=== PATIENT | male | born 1965 | race Caucasian/White ===

== ENCOUNTER 2023-11-12 10:33 | Inpatient (IN) | payer OTHER, SELFPAY ==
[2023-11-12] VITALS (10 sets, daily range): BP systolic 90–122; BP diastolic 71–84; PULSE 78–111; RESP 16–18; TEMP 36.9–38.4; O2SAT 87–95; BMI 30.8
--- NOTE | 2023-11-12 10:32 | PCM.HP.STD ---
HPI - General General Date of Admission: 11/12/23 Date of Service: 11/12/23 Chief Complaint: Right upper quadrant abdominal pain HPI Narrative THOMAS WEST, is a 58 M who presents with right upper quadrant abdominal pain. Patient symptoms started a day prior to coming in. Pain was described as dull ache radiating to the right flank into the back. Had associated nausea but no vomiting. Patient was seen at the facility [facility] in view of persistent pain. Imaging studies demonstrated multiple gallstones with intra and extrahepatic biliary dilatation. Patient was also found to have thickened gallbladder. Friend with GI was notified from [facility] who did accept patient. Plan is for patient to undergo ERCP. On further questioning patient did admit to previous intermittent right upper quadrant pain which resolved spontaneously. [facility] Medical History (Updated 11/12/23 @ 11:[address] Archie Eng MD) Cancer Former smoker Hypertension Home Medications telmisartan 40 mg tablet (Micardis) 40 mg PO DAILY cholesterol 11/12/23 [History Last Taken 11/11/23] Allergy/AdvReac Type Severity Reaction Status Date / Time No Known Allergies Allergy Verified 11/12/23 10:35 Social History Smoking Status: Former smoker ROS ROS Narrative GENERAL: denies fever, chills, night sweats, weight loss, anorexia HEENT: denies headache, sinus congestion, or drainage, dysphagia RESPIRATORY: denies cough, sputum production, shortness of breath, CARDIAC: denies chest pain, palpitations, orthopnea, PND GASTROINTESTINAL: Right upper quadrant abdominal pain, nausea GENITOURINARY: denies dysuria, urgency, frequency, heamaturia EXTREMITY: denies swelling MUSCULOSKELETAL: denies current joint pain or tenderness NEUROLOGIC: denies focal numbness, weakness, tingling HEMATOLOGIC: denies easy bruising and/or hemorrhage INTEGUMENT: denies rashes PSYCHIATRIC: denies suicidal or homicidal ideation Physical Exam Narrative GENERAL: cooperative HEENT: Atraumatic; normocephalic EYES; Anicteric, Normal Conjunctiva NECK; supple, normal thyroid, RESPIRATORY: Diminished to auscultation CARDIOVASCULAR: Regular S1 S2, GI: soft, normoactive bowel sounds, RUQ tenderness : No Renal angle tenderness; EXTREMITIES: No edema, no clubbing, MUSCULOSKELETAL: no muscle wasting NEURO: Awake; no lateralizing signs. SKIN: No Rash PSYCH; Flat affect Assessment & Plan Assessment/Plan (1) Cholelithiasis and acute cholecystitis with obstruction: PLAN: Plan Patient is a 58-year-old gentleman presenting with right upper quadrant abdominal pain 1. Acute cholelithiasis with obstruction ? CT obtained at an outside facility demonstrated multiple gallstones with intrahepatic biliary dilatation. The films have been sent to radiology for reread. Patient admitted to regular nursing floor managed with pain meds, antinausea medication IV fluids with consultation placed to Dr. Abreu with gastroenterology 2. Suspected acute cholecystitis ? Patient started on Zosyn consult placed to general surgery?Dr. Koch 3. Hypertension - Blood pressure controlled, home medications continued with dose adjustment as needed. 4. DVT prophylaxis ? Low risk with encouraging ambulation Time spent in the patient's overall evaluation,decision-making process, review of diagnostic data, adjustment of management, discussion with other providers, nursing nursing and ancillary staff involved in patient's care documentation, 55 Minutes Advance planning; did discuss with the patient and family regarding advanced directives as well as CODE STATUS. Did explain the various scenarios involved ( FULL CODE, DNR CCA, DNR CCA with no intubation, and DNR CC and what each meant) patient elected to full code with CPR and intubation if needed. Order was placed. Time spent on discussion 18 minutes. Charges/Coding Visit Charges Inpatient E&M: 54428 Subs Hosp L2 Procedures Hospitalists Procedures: 79482 Advncd Care Plan 30 Min
[2023-11-12] MEDS: Lactated Ringers 1,000 ML 150 ML IV ×2 (10:51→17:49)
[2023-11-12] MEDS: Pantoprazole Sodium 40 MG Tablet PO (10:55)
[2023-11-12] MEDS: Losartan Potassium 50 MG Tablet PO (10:55)
[2023-11-12] MEDS: HYDROmorphone 0.5 MG/0.5 ML SYRINGE IV ×2 (11:11→14:07)
[2023-11-12 11:25] LABS: Absolute Lymphocyte Count 0.73 X10^3/uL (0.83-4.51); Absolute Neutrophil Count 13.2 X10^3/uL (2.0-7.7); Basophil# 0.04 X10^3/uL; Basophil% 0.3 % (0-1); Eosinophil# 0.01 X10^3/uL; Eosinophils% 0.1 % (0-5); Hemoglobin 13.8 g/dL (13.0-16.5); Lymphocyte # 0.73 X10^3/ul (0.83-4.51); Lymphocyte % 4.6 % (19-41); Mean Corp Hgb Conc 33.7 g/dL (32-36); Mean Corpuscular Hgb 28.5 pg (27.0-32.0); Mean Corpuscular Volume 84.7 fL (80-94); Mean Platelet Vol. 9.2 fl (6.2-12.0); Monocyte# 1.74 X10^3/uL; Monocyte% 11.1 % (0-10); NRBC Flagged by Analyzer 0 % (0-5); Neutrophil # 13.15 X10^3/uL (2.7-7.7); Neutrophil % 83.5 % (47-70); POSITIVE DIFFERENTIAL YES; Platelet Count 289 K/mm3 (150-450); RBC Distribution Width CV 13.8 % (11.6-14.6); Red Blood Count 4.84 M/mm3 (4.6-6.2); White Blood Count 15.7 K/mm3 (4.4-11.0)
[2023-11-12 11:28] LABS: Differential Indicated SCAN CRITERIA MET
[2023-11-12 11:44] LABS: AST(SGOT) 148 U/L (15-37); Alanine Aminotransfer ALT/SGPT 323 U/L (16-61); Albumin, Serum 3.6 g/dL (3.2-5.0); Alkaline Phosphatase 203 U/L (45-117); Anion Gap 4 (5-15); BUN 14 mg/dL (7-18); BUN/Creat Ratio 14.4 RATIO (10-20); Bilirubin, Direct 5.41 mg/dL (0.00-0.30); Calcium,Total 9.2 mg/dL (8.5-10.1); Chloride 106 mmol/L (98-107); Creatinine, Serum 0.97 mg/dL (0.70-1.30); EST Glomerular Filtration Rate 85 mL/min (>60); Est Glom Filt Rate - Afr Amer 103 mL/min (>60); Estimated Creatinine Clearance 95.48 ml/min; Globulin 3.6 g/dL (2.2-4.2); Glucose 127 mg/dL (74-106); Magnesium 2.1 mg/dL (1.6-2.6); Phosphorus 2.5 mg/dL (2.5-4.9); Potassium 3.9 mmol/L (3.5-5.1); Protein, Total 7.2 g/dL (6.4-8.2); Sodium Level 135 mmol/L (136-145)
[2023-11-12 12:18] LABS: Reactive Lymphocyte 1+
--- NOTE | 2023-11-12 13:17 | EKG12_ITS ---
Test Reason : Blood Pressure : / mmHG Vent. Rate : 102 BPM Atrial Rate : 102 BPM P-R Int : 166 ms QRS Dur : 082 ms QT Int : 330 ms P-R-T Axes : 063 052 024 degrees QTc Int : 430 ms Sinus tachycardia Otherwise normal ECG No previous ECGs available Confirmed by CHRIS HUDSON ([id number]), newspaper or periodical editor KENDALL MARCIAL ([id number]) on 11/17/2023 9:30:46 AM Referred By: JOHN Confirmed By:CHRIS HUDSON
[2023-11-12] MEDS: Acetaminophen 500 MG Tablet 1000 MG PO (14:03)
[2023-11-12] MEDS: Piperacil/Tazobactam 3.375 GM in 0.9% Normal Saline (50mL MB+) 50 ML IV ×2 (14:24→21:29)
--- NOTE | 2023-11-12 15:10 | RAD_ITS ---
INDICATION: cough EXAMINATION/TECHNIQUE: X-RAY - XR Chest 1 View COMPARISON: None. FINDINGS: LINES/DEVICES: None. LUNGS: Linear atelectasis in the right midlung. Airspace consolidation posterior right lower lobe. No left lung consolidation. No florid edema. No pneumothorax. MEDIASTINUM AND CARDIOVASCULAR STRUCTURES: Cardiac silhouette not enlarged. BONES AND SOFT TISSUES: Unremarkable. RAD/Chest 1 View (Portable) IMPRESSION: Right basilar consolidation concerning for pneumonia. Radiographic follow-up recommended in 6 weeks after treatment to ensure resolution. Electronically Signed: Kit Sung MD at 19:55 EDT ,
[2023-11-12 16:39] LABS: Lactic Acid 0.9 mmol/L (0.4-1.9)
--- NOTE | 2023-11-12 18:34 | CON.PCM.SX_ITS ---
Assessment & Plan Assessment/Plan (1) Cholelithiasis and acute cholecystitis with obstruction: PLAN: Patient is a 58-year-old, reasonably healthy, male who presents with signs and symptoms consistent with choledocholithiasis and acute cholecystitis. He suggests that he may have had similar right upper quadrant discomfort?in a self-limited fashion?over the last few years. This may be a description of symptomatic cholelithiasis versus chronic cholecystitis, but at present he does have a positive Jamison sign suggestive of acute cholecystitis. Further, his labs were repeated at our facility and confirmed the outside hospital testing that he has a significant elevation of his liver function testing and bilirubin. I have thus taken the time to explain his diagnosis and used a hand drawing to outline the relative anatomy and physiology. I shared that this would consist of a treatment plan delivered in part by gastroenterology (ERCP) and followed by surgery (cholecystectomy). Some details of these procedures were also shared and all questions were answered from patient and his spouse. He is presently on empiric IV antibiotic therapy with IV Zosyn per hospitalist service. We have finalized treatment plan timing and patient will be allowed a clear liquid diet until midnight then n.p.o. past midnight in anticipation of ERCP followed by laparoscopic cholecystectomy with the same anesthesia. Reece Koch MD General Surgery Endocrine Surgery Pager: [facility] [address] [place] [address], [address] [place] [address] Office: [phone] HPI Consult Data Date of Consult: 11/12/23 HPI Narrative Reason for Consultation: Cholecystitis with choledocholithiasis HPI Narrative: THOMAS WEST, is a 58 M who presents to [facility] on direct transfer from [facility] after acceptance by Dr. Abreu/gastroenterology. Patient states that yesterday he started with right upper quadrant discomfort that intensified approximately midnight. He shares that this right upper quadrant pain was associated with fever and nausea. He also suggest that his urine may have been darker than normal. He does relate that this pain is not necessarily new to him and he had more self-limited experiences of this pain in the past couple of years. Patient's outside hospital workup was inclusive of CMP that showed elevation of his liver function testing and bilirubin and a cholestatic pattern. Further, CT imaging of the abdomen pelvis was performed and showed evidence of intra and extrahepatic biliary dilatation with choledocholithiasis. Patient is a former smoker who underwent cessation 27 years ago. He also has a history of hypertension. He reports a history of melanoma excision several years ago but was assured that the lesion was entirely excised. [facility] Medical History (Updated 11/12/23 @ 11:[address] Archie Eng MD) Cancer Former smoker Hypertension Home Medications telmisartan 40 mg tablet (Micardis) 40 mg PO DAILY cholesterol 11/12/23 [History Last Taken 11/11/23] Allergy/AdvReac Type Severity Reaction Status Date / Time No Known Allergies Allergy Verified 11/12/23 10:35 Social History Smoking Status: Former smoker Physical Exam Const alert and well nourished Constitutional Narrative: Jaundiced General Appearance: cooperative Eyes Eyes Narrative: Scleral icterus present Resp normal respiratory effort GI GI Narrative: Hirsute, no scars, soft, nondistended, tender to palpation in the right upper quadrant with positive Jamison sign Lab / Micro Data 11/12/23 11:15 11/12/23 11:15 Labs: Laboratory Results - last 24 hr 11/12/23 11:15: WBC 15.7 H, RBC 4.84, Hgb 13.8, Hct 41.0, MCV 84.7, MCH 28.5, MCHC 33.7, RDW Std Deviation 43.0, RDW Coeff of Abdiaziz 13.8, Plt Count 289, MPV 9.2, Immature Gran % (Auto) 0.400, Neut % (Auto) 83.5 H, Lymph % (Auto) 4.6 L, [place] % (Auto) 11.1 H, Eos % (Auto) 0.1, Baso % (Auto) 0.3, Absolute Neuts (auto) 13.2 H, Absolute Lymphs (auto) 0.73 L, Nucleated RBC % 0, Diff Path Review May foll, Reactive Lymphocytes 1+, Sodium 135 L, Potassium 3.9, Chloride 106, Carbon Dioxide 25.0, Anion Gap 4 L, BUN 14, Creatinine 0.97, Estim Creat Clear Calc 95.48, Est GFR (MDRD) Af Amer 103, Est GFR (MDRD) Non-Af 85, BUN/Creatinine Ratio 14.4, Glucose 127 H, Calcium 9.2, Phosphorus 2.5, Magnesium 2.1, Total Bilirubin 7.30 H, Direct Bilirubin 5.41 H, AST 148 H, ALT 323 H, Alkaline Phosphatase 203 H, Total Protein 7.2, Albumin 3.6, Globulin 3.6 11/12/23 15:59: Lactic Acid 0.9 Charges/Coding Visit Charges Inpatient E&M: 04095 Init Hosp L2
[2023-11-12] MEDS: oxyCODONE 5 MG Tablet PO (20:56)
[2023-11-13] VITALS (16 sets, daily range): BP systolic 100–126; BP diastolic 67–83; PULSE 70–99; RESP 14–20; TEMP 36.2–37.7; O2SAT 88–96; BMI 30.8
--- NOTE | 2023-11-13 | GALL_PTH ---
PATIENT: THOMAS WEST LOC: MS3 U#:[id number] AGE/SX: 58/M ROOM: IL317 RE11/12/[address]: Dr. Archie Eng MD : 1965 BED: 1 DIS: 11/14/2023 SPEC #: [id number] RECD: 11/13/23 15:08 STATUS: LEENA REQ #: [id number] BROOKS: 11/13/23 00:[address]: Rico Jones DEPT: SURGICAL PATHOLOGY RECD BY: Dewayne Orozco ENTERED: 11/14/23 09:26 SP TYPE: GALLBLADDE OTHR DR: MD Dr. Reece Yeh MD Tissues: Gallbladder, NOS Procedures: Surgery Specimen Level III Comments: @ Ordering doctor for SUIII edited from to @ by TWIN at 11/14/23 142 @ Submitting doctor edited from to @ by TWIN at 11/14/23 1422 HEADER OPERATION: Laparoscopic, Cholecystectomy with IOC PRE-OP DIAGNOSIS: Cholecystitis with choledocholithiasis TISSUE SUBMITTED: Gallbladder MICROSCOPIC DIAGNOSIS Gallbladder, cholecystectomy: Chronic cholecystitis, cholelithiasis and reactive epithelial changes. GIGI/ 11/17/23 MICROSCOPIC DESCRIPTION Slides are reviewed. GROSS DESCRIPTION Received is one container labeled with the patient's name and designated gallbladder. The specimen consists of a gallbladder measuring 7.0 cm in length and up to 3.5 cm in diameter. The external surface is pink-allen, smooth and glistening for the most part. Focally it is granular, hemorrhagic and contains cautery artifact. The gallbladder contains small amount of yellowish-red hemorrhagic mucoid bile and multiple multifaceted vdxhfxrnq-glvmy-fwbjt-black stones measuring in aggregate 5.0 x 5.0 x 2.0 cm and 0.5 to 3.0cm in greatest dimension. The mucosa is bile-stained and without any mass lesions. The gallbladder wall measures up to 0.5 cm in thickness. Sap Bpc Architect sections from the gallbladder and the cystic duct are submitted in one cassette. / GIGI: 11/14/2023 TC:3 CPT: 41333
[2023-11-13] MEDS: Lactated Ringers 1,000 ML 150 ML IV ×4 (00:13→22:10)
[2023-11-13] MEDS: Piperacil/Tazobactam 3.375 GM in 0.9% Normal Saline (50mL MB+) 50 ML IV ×3 (05:00→22:09)
[2023-11-13 06:35] LABS: Absolute Lymphocyte Count 0.91 X10^3/uL (0.83-4.51); Basophil# 0.05 X10^3/uL; Basophil% 0.6 % (0-1); Eosinophils% 2.4 % (0-5); Hematocrit 37.6 % (40-54); Hemoglobin 12.4 g/dL (13.0-16.5); Lymphocyte # 0.91 X10^3/ul (0.83-4.51); Lymphocyte % 10.8 % (19-41); Mean Corpuscular Hgb 27.9 pg (27.0-32.0); Mean Corpuscular Volume 84.5 fL (80-94); Mean Platelet Vol. 9.4 fl (6.2-12.0); Monocyte# 1.16 X10^3/uL; Monocyte% 13.8 % (0-10); NRBC Flagged by Analyzer 0 % (0-5); Neutrophil # 6.04 X10^3/uL (2.7-7.7); Neutrophil % 71.9 % (47-70); Platelet Count 217 K/mm3 (150-450); RBC Distribution Width CV 13.8 % (11.6-14.6); Red Blood Count 4.45 M/mm3 (4.6-6.2); White Blood Count 8.4 K/mm3 (4.4-11.0)
[2023-11-13 06:59] LABS: AST(SGOT) 55 U/L (15-37); Alanine Aminotransfer ALT/SGPT 182 U/L (16-61); Albumin, Serum 2.7 g/dL (3.2-5.0); Alkaline Phosphatase 148 U/L (45-117); Anion Gap 4 (5-15); BUN 10 mg/dL (7-18); Bilirubin, Direct 5.56 mg/dL (0.00-0.30); Calcium,Total 8.6 mg/dL (8.5-10.1); Chloride 107 mmol/L (98-107); Creatinine, Serum 0.77 mg/dL (0.70-1.30); EST Glomerular Filtration Rate 111 mL/min (>60); Est Glom Filt Rate - Afr Amer 135 mL/min (>60); Estimated Creatinine Clearance 120.28 ml/min; Globulin 3.1 g/dL (2.2-4.2); Glucose 96 mg/dL (74-106); Phosphorus 1.7 mg/dL (2.5-4.9); Potassium 3.7 mmol/L (3.5-5.1); Protein, Total 5.8 g/dL (6.4-8.2); Sodium Level 136 mmol/L (136-145)
--- NOTE | 2023-11-13 07:47 | PCM.PN.HOSP ---
Reason for Visit Reason for Visit: Diagnoses Calculus of gallbladder with acute cholecystitis with obstruction (11/12/23) Subjective Subjective . Patient admitted with cholelithiasis with obstruction and cholecystitis. Scheduled to undergo ERCP and cholecystectomy. Objective Data Objective Data Vital Signs: Vital Signs Temp Pulse Resp BP Pulse Ox O2 Del Method O2 Flow Rate 98.7 F 87 18 109/79 95 Nasal Cannula 2 11/13/23 05:33 11/13/23 05:33 11/13/23 05:33 11/13/23 05:33 11/13/23 05:33 11/13/23 05:38 11/13/23 05:33 Oxygen Flow Rate (L/min) 2 Oxygen Delivery Method Nasal Cannula Weight: 94.801 kg Body Mass Index (BMI) 30.8 Intake & Output: Intake and Output for Last 24 Hours 11/11/23 11/12/23 11/13/23 23:59 23:59 23:59 Intake Total 1550 / 1550 1815 / 1815 Balance 1550 / 1550 1815 / 1815 Lab / Micro Data 11/13/23 06:22 11/13/23 06:22 Labs: Laboratory Results - last 24 hr 11/12/23 11:15: WBC 15.7 H, RBC 4.84, Hgb 13.8, Hct 41.0, MCV 84.7, MCH 28.5, MCHC 33.7, RDW Std Deviation 43.0, RDW Coeff of Abdiaziz 13.8, Plt Count 289, MPV 9.2, Immature Gran % (Auto) 0.400, Neut % (Auto) 83.5 H, Lymph % (Auto) 4.6 L, [place] % (Auto) 11.1 H, Eos % (Auto) 0.1, Baso % (Auto) 0.3, Absolute Neuts (auto) 13.2 H, Absolute Lymphs (auto) 0.73 L, Nucleated RBC % 0, Diff Path Review May foll, Reactive Lymphocytes 1+, Sodium 135 L, Potassium 3.9, Chloride 106, Carbon Dioxide 25.0, Anion Gap 4 L, BUN 14, Creatinine 0.97, Estim Creat Clear Calc 95.48, Est GFR (MDRD) Af Amer 103, Est GFR (MDRD) Non-Af 85, BUN/Creatinine Ratio 14.4, Glucose 127 H, Calcium 9.2, Phosphorus 2.5, Magnesium 2.1, Total Bilirubin 7.30 H, Direct Bilirubin 5.41 H, AST 148 H, ALT 323 H, Alkaline Phosphatase 203 H, Total Protein 7.2, Albumin 3.6, Globulin 3.6 11/12/23 15:59: Lactic Acid 0.9 11/13/23 06:22: WBC 8.4, RBC 4.45 L, Hgb 12.4 L, Hct 37.6 L, MCV 84.5, MCH 27.9, MCHC 33.0, RDW Std Deviation 43.0, RDW Coeff of Abdiaziz 13.8, Plt Count 217, MPV 9.4, Immature Gran % (Auto) 0.500, Neut % (Auto) 71.9 H, Lymph % (Auto) 10.8 L, [place] % (Auto) 13.8 H, Eos % (Auto) 2.4, Baso % (Auto) 0.6, Absolute Neuts (auto) 6.0, Absolute Lymphs (auto) 0.91, Nucleated RBC % 0, Sodium 136, Potassium 3.7, Chloride 107, Carbon Dioxide 25.0, Anion Gap 4 L, BUN 10, Creatinine 0.77, Estim Creat Clear Calc 120.28, Est GFR (MDRD) Af Amer 135, Est GFR (MDRD) Non-Af 111, BUN/Creatinine Ratio 13.0, Glucose 96, Calcium 8.6, Phosphorus 1.7 L, Magnesium 2.0, Total Bilirubin 7.00 H, Direct Bilirubin 5.56 H, AST 55 H, ALT 182 H, Alkaline Phosphatase 148 H, Total Protein 5.8 L, Albumin 2.7 L, Globulin 3.1 Radiography Diagnostic Testing: Radiology Impression Chest X-Ray 11/12/23 15:10 IMPRESSION: Right basilar consolidation concerning for pneumonia. Radiographic follow-up recommended in 6 weeks after treatment to ensure resolution. Electronically Signed: Kit Sung MD at 19:55 EDT , Physical Exam Narrative GENERAL: cooperative HEENT: Atraumatic; normocephalic EYES; Anicteric, Normal Conjunctiva NECK; supple, normal thyroid, RESPIRATORY: Diminished to auscultation CARDIOVASCULAR: Regular S1 S2, GI: soft, normoactive bowel sounds, RUQ tenderness : No Renal angle tenderness; EXTREMITIES: No edema, no clubbing, MUSCULOSKELETAL: no muscle wasting NEURO: Awake; no lateralizing signs. SKIN: No Rash PSYCH; Flat affect Assessment & Plan Assessment/Plan (1) Cholelithiasis and acute cholecystitis with obstruction: PLAN: Plan Patient is a 58-year-old gentleman presenting with right upper quadrant abdominal pain 1. Acute cholelithiasis with obstruction ? CT obtained at an outside facility demonstrated multiple gallstones with intrahepatic biliary dilatation. The films have been sent to radiology for reread. Patient admitted to regular nursing floor managed with pain meds, antinausea medication IV fluids with consultation placed to Dr. Abreu with gastroenterology ? 11/13/2023 patient scheduled to undergo ERCP and cholecystectomy 2. Suspected acute cholecystitis ? Patient started on Zosyn consult placed to general surgery?Dr. Koch 3. Hypertension - Blood pressure controlled, home medications continued with dose adjustment as needed. 4. Suspected pneumonia involving the right lower lobe ? Patient remains on broad-spectrum antibiotic therapy 5. DVT prophylaxis ? Low risk with encouraging ambulation Time spent in the patient's overall evaluation,decision-making process, review of diagnostic data, adjustment of management, discussion with other providers, nursing nursing and ancillary staff involved in patient's care documentation, 50 Minutes Charges/Coding Visit Charges Inpatient E&M: 45759 [facility] L3
[2023-11-13 09:48] LABS: Pathologist Review Reviewed
[2023-11-13] MEDS: Lactated Ringers 1,000 ML 15 ML IV (10:40)
[2023-11-13] MEDS: Losartan Potassium 50 MG Tablet PO (12:05)
--- NOTE | 2023-11-13 12:31 | RAD_ITS ---
INDICATION: PAIN EXAMINATION/TECHNIQUE: ERCP limited spot intraoperative films are presented for evaluation. Total Fluoroscopic Time: 193 seconds AND number of Fluoroscopic Images: 14 OR Radiation dosage index: 51.69 mGy. COMPARISON: No relevant prior comparison study available FINDINGS: The common bile duct was cannulated. Prominent proximal common bile duct and intrahepatic biliary ducts. The last images demonstrate common bile duct stent. The examination was performed for documentation. No radiologist was present during the examination. RAD/ERCP Biliary/Pancreas IMPRESSION: ERCP as described above. Electronically Signed: Greg Saucedo MD at 14:06 EDT ,
--- NOTE | 2023-11-13 13:27 | OP.ERCP_ITS ---
Patient Name: Shakeel Tony Procedure Date: 11/13/2023 11:23 AM Date of : 1965 Age: 58 Procedure: ERCP Indications: Abdominal pain of suspected biliary origin, For therapy of bile duct stone(s), Jaundice, Elevated liver enzymes Providers: Slade Abreu DO Medicines: Monitored Anesthesia Care Patient Profile: This is a 58 year old male. Refer to note in patient chart for documentation of history and physical. Patient has symptoms of acute right upper quadrant abdominal pain and acute jaundice. This patient has no history of previous ERCP. This patient has no history of surgical alteration of the upper digestive tract anatomy. Complications: No immediate complications. Procedure: Pre-Anesthesia Assessment: - Prior to the procedure, a History and Physical was performed, and patient medications and allergies were reviewed. The patient is competent. The risks and benefits of the procedure and the sedation options and risks were discussed with the patient. All questions were answered and informed consent was obtained. Patient identification and proposed procedure were verified by the physician. Mental Status Examination: normal. Prophylactic Antibiotics: The patient does not require prophylactic antibiotics. Prior Anticoagulants: The patient has taken no anticoagulant or antiplatelet agents. ASA Grade Assessment: II - A patient with mild systemic disease. After reviewing the risks and benefits, the patient was deemed in satisfactory condition to undergo the procedure. The anesthesia plan was to use monitored anesthesia care (MAC). Immediately prior to administration of medications, the patient was re-assessed for adequacy to receive sedatives. The heart rate, respiratory rate, oxygen saturations, blood pressure, adequacy of pulmonary ventilation, and response to care were monitored throughout the procedure. The physical status of the patient was re-assessed after the procedure. After obtaining informed consent, the scope was passed under direct vision. Throughout the procedure, the patient's blood pressure, pulse, and oxygen saturations were monitored continuously. The Duodenoscope was introduced through the mouth, and advanced to the duodenum and used to inject contrast into the bile duct and ventral pancreatic duct. The ERCP was accomplished without difficulty. The patient tolerated the procedure well. Scope In: 12:35:45 PM Scope Out: 12:57:08 PM Total Procedure Duration Time 0 hours 21 minutes 23 seconds Findings: The scale adjuster film was normal. The esophagus was successfully intubated under direct vision. The scope was advanced to a normal major papilla in the descending duodenum without detailed examination of the pharynx, larynx and associated structures, and upper GI tract. The upper GI tract was grossly normal. The bile duct was deeply cannulated with the short-nosed traction sphincterotome. Contrast was injected. I personally interpreted the bile duct and pancreatic duct images. There was brisk flow of contrast through the ducts. Image quality was excellent. Contrast extended to the entire biliary tree. Opacification of the entire biliary tree except for the cystic duct and gallbladder was successful. The maximum diameter of the ducts was 11 mm. The lower third of the main bile duct contained multiple stones, the largest of which was 6 mm in diameter. The main bile duct, left main hepatic duct and left intrahepatic branches were diffusely dilated, with a stone causing an obstruction. The largest diameter was 10 mm. A straight Roadrunner wire was passed into the biliary tree. A 5 mm biliary sphincterotomy was made with a traction (standard) sphincterotome using ERBE electrocautery. The sphincterotomy oozed blood. The biliary tree was swept with a 12 mm balloon starting at the bifurcation. All stones were removed. Dilation of the common bile duct with a 10-11-12 mm balloon (to a maximum balloon size of 12 mm) dilator was successful. One 10 Fr by 5 cm temporary stent was placed 5 cm into the common bile duct. Bile flowed through the stent. The stent was in good position. Impression: - The entire main bile duct, left main hepatic duct and left intrahepatic branches were dilated, with a stone causing an obstruction. - Choledocholithiasis was found. Complete removal was accomplished by biliary sphincterotomy and balloon extraction. - A biliary sphincterotomy was performed. - The biliary tree was swept. - Common bile duct was successfully dilated. - One temporary stent was placed into the common bile duct. Procedure Code(s): --- Professional --- 64294, Endoscopic retrograde cholangiopancreatography (ERCP); with placement of endoscopic stent into biliary or pancreatic duct, including pre- and post-dilation and guide wire passage, when performed, including sphincterotomy, when performed, each stent 76911, Endoscopic retrograde cholangiopancreatography (ERCP); with removal of calculi/debris from biliary/pancreatic duct(s) 54336, 26, Combined endoscopic catheterization of the biliary and pancreatic ductal systems, radiological supervision and interpretation CPT copyright 2021 [employer]. All rights reserved. The codes documented in this report are preliminary and upon machine candle molder review may be revised to meet current compliance requirements. Slade Abreu DO 11/13/2023 1:27:15 PM This report has been signed electronically. Number of Addenda: 0 Note Initiated On: 11/13/2023 11:23 AM
--- NOTE | 2023-11-13 13:37 | RAD_ITS ---
INDICATION: PAIN EXAMINATION/TECHNIQUE: ERCP limited spot intraoperative films are presented for evaluation. Total Fluoroscopic Time: 34 seconds AND number of Fluoroscopic Images: Cine images OR Radiation dosage index: 19.19 mGy COMPARISON: No relevant prior comparison study available FINDINGS: The common bile duct was cannulated. Dilated common bile duct. No definite constant filling defect is seen There is free passage into the duodenum. The examination was performed documentation. No radiologist was present. RAD/Cholangiogram/ O R,Initial IMPRESSION: ERCP as described above. Electronically Signed: Greg Saucedo MD at 15:07 EDT ,
[2023-11-13] MEDS: Bupivacaine Mpf 0.5% 30 ML VIAL (14:25)
--- NOTE | 2023-11-13 14:36 | PCM.OPRPT ---
Report of Operation Date of Procedure: 11/13/23 Pre-Operative Diagnosis: Choledocholithiasis with cholecystitis Post-Operative Diagnosis: Same Surgery/Procedure Performed:: Laparoscopic cholecystectomy with intraoperative cholangiogram Description of Surgical Findings:: ? Evidence of acute on chronic cholecystitis with adiposity around the gallbladder infundibulum and cystic duct and edema plane between the gallbladder wall and the gallbladder fossa ? Mildly dilated cystic duct with cholangiogram showing normal filling of the common bile duct and retrograde filling of the common hepatic duct system without extravasation of Surgeon: Reece Koch Type of Anesthesia: General/Supplemental Anesthesiologist: Umang Palacios Specimen's removed: Gallbladder Estimated Blood Loss (mL): 15 Description of Procedure: After proper identification in the preoperative holding area the patient was brought to the operating room where he was positioned supine on the operating room table. Preoperatively SCDs were placed and antibiotics were administered. General anesthesia was then induced. Patient's abdomen was prepped and draped in usual sterile fashion. A formal timeout was conducted to confirm both patient and the procedure. Procedure was begun with a supraumbilical incision which was extended deeply down to the level of the fascia. The fascia was elevated and incised, as well as the peritoneum. A finger sweep was performed to ensure there were no underlying adhesions and a 12 mm balloon trocar was inserted. Pneumoperitoneum was established at 15 mmHg. Three additional trocars (all 5 mm) were placed in the epigastrium and in the right upper quadrant. Inspection of the peritoneum revealed no inadvertent injury to the viscera below. The gallbladder was visualized with evidence of acute on chronic inflammation. The gallbladder fundus was then grasped and elevated cephalad. Then, using careful dissection the peritoneum was opened and the structures of the hepatocystic triangle were delineated. Once the critical view of safety was obtained, the cystic duct was singly clipped and partially divided with a ductotomy. A 14-gauge angiocatheter was inserted into the epigastrium and via this catheter a cholangiocatheter was fed into the proximal segment of the cystic duct and clipped into place. Using an Parra [place] clamp, a cholangiocatheter was fed into the proximal segment of the cystic duct and clamped into place. Under fluoroscopy a cholangiogram was then obtained showing a standard length cystic duct flowing into a common bile duct with unobstructed antegrade flow of contrast into the duodenum via a common bile duct stent. There was also retrograde flow through the common hepatic duct into the right and left hepatic ducts. Satisfied with this result, the cholangiocatheter was withdrawn and the proximal cystic duct was sealed with Hem-o-flaca clips x 2 and the cystic duct was completely transected. The same process was used for the cystic artery. The gallbladder was then removed from the gallbladder fossa with the use of electrocautery. Selective electrocautery was used to obtain hemostasis in the gallbladder fossa. Morison's pouch was irrigated and the effluent was suctioned free of the peritoneum. Hemostasis was again confirmed. Pneumoperitoneum was evacuated and the gallbladder was placed in an Endo Catch bag and removed from the peritoneum.the fascia of the 12 mm port site was closed with #1Vicryl in a [id number] fashion. A total of 30 mL of anesthetic was injected at the port sites for postoperative pain control. The skin of each port site was then closed in subcuticular fashion using 4-0 Monocryl. Steri-Strips and bandages were applied as dressings. Patient tolerated the procedure well without any apparent complications. On emergence from their anesthetic the patient was taken to PACU for ongoing recovery. Complications No Admit VTE Documentation VTE Mechan Device Prophylaxis: SCD's Procedures Digestive 40xxx-49xxx: 86110 Laparo cholecystectomy/graph
--- NOTE | 2023-11-13 17:33 | NURSING ---
PT AND SIG OTHER WAS TOLD BY GUTIERREZ COREAS THAT HE HAD TO GET THIS NURSE TO ASSIST GETTING PT UP FOR THE FIRST TIME. WHEN LYUDMILA WENT BACK INTO ROOM TO START GETTING PT UP TO EDGE OF BED WHILE THIS NURSE FINISHED UP SOMETHING, THE SIG OTHER ALREADY HAD PT IN THE BATHROOM.
[2023-11-13] MEDS: HYDROmorphone 0.5 MG/0.5 ML SYRINGE IV (18:29)
[2023-11-13] MEDS: 0.9% Saline Lock 10 ML Syringe IV (18:30)
[2023-11-13] MEDS: Pantoprazole Sodium 40 MG Tablet PO (18:30)
[2023-11-13] MEDS: oxyCODONE 5 MG Tablet PO (21:58)
[2023-11-14 00:27] VITALS: PULSE 76; O2SAT 91
[2023-11-14 01:28] VITALS: BP 103/75; PULSE 76; RESP 20; TEMP 36.7; O2SAT 92
[2023-11-14 02:06] VITALS: O2SAT 83
[2023-11-14 02:08] VITALS: O2SAT 97
[2023-11-14] MEDS: Lactated Ringers 1,000 ML 150 ML IV (05:10)
[2023-11-14 05:53] VITALS: BP 120/77; PULSE 69; RESP 20; TEMP 36.9; O2SAT 95
[2023-11-14] MEDS: oxyCODONE 5 MG Tablet PO ×2 (05:58→11:35)
[2023-11-14] MEDS: Piperacil/Tazobactam 3.375 GM in 0.9% Normal Saline (50mL MB+) 50 ML IV (06:01)
--- NOTE | 2023-11-14 06:37 | PCM.PN.SRG ---
Subjective Subjective Patient seen and examined during AM rounds. He was found resting in bed. He denied any difficulty with advancement to clear liquid following surgery. He has minimal discomfort of his abdomen. Objective Data Objective Data Vital Signs: Vital Signs Temp Pulse Resp BP Pulse Ox O2 Del Method O2 Flow Rate 98.4 F 69 20 H 120/77 95 Room Air 2 11/14/23 05:53 11/14/23 05:53 11/14/23 05:53 11/14/23 05:53 11/14/23 05:53 11/14/23 05:53 11/14/23 02:08 Oxygen Flow Rate (L/min) 2 Oxygen Delivery Method Room Air Weight: 209 lb Body Mass Index (BMI) 30.8 Intake & Output: Intake and Output for Last 24 Hours 11/12/23 11/13/23 11/14/23 23:59 23:59 23:59 Intake Total 1550 / 1550 3045.42 / 3045.42 1647.08 / 1647.08 Output Total 0 / 0 Balance 1550 / 1550 3045.42 / 3045.42 1647.08 / 1647.08 Lab / Micro Data 11/14/23 06:50 11/14/23 06:50 Labs: Laboratory Results - last 24 hr 11/12/23 11:15: Diff Path Review Reviewed 11/13/23 06:22: Sodium 136, Potassium 3.7, Chloride 107, Carbon Dioxide 25.0, Anion Gap 4 L, BUN 10, Creatinine 0.77, Estim Creat Clear Calc 120.28, Est GFR (MDRD) Af Amer 135, Est GFR (MDRD) Non-Af 111, BUN/Creatinine Ratio 13.0, Glucose 96, Calcium 8.6, Phosphorus 1.7 L, Magnesium 2.0, Total Bilirubin 7.00 H, Direct Bilirubin 5.56 H, AST 55 H, ALT 182 H, Alkaline Phosphatase 148 H, Total Protein 5.8 L, Albumin 2.7 L, Globulin 3.1 Radiography Diagnostic Testing: Radiology Impression Endo Retro Cholangiopancreatogram 11/13/23 12:31 IMPRESSION: ERCP as described above. Electronically Signed: Greg Saucedo MD at 14:06 EDT , Cholangiogram 11/13/23 13:37 IMPRESSION: ERCP as described above. Electronically Signed: Greg Saucedo MD at 15:07 EDT , Physical Exam Const oriented x3 and no apparent distress Resp normal respiratory effort GI GI Narrative: Operative dressings remain intact with minimal strikethrough drainage to the supraumbilical incision. Remainder of the incisions are dressed and are CDI. There is some superficial tenderness with palpation about the port sites but otherwise patient denies complaint. Assessment & Plan Assessment/Plan (1) Cholelithiasis and acute cholecystitis with obstruction: PLAN: Patient is a 58-year-old, reasonably healthy, male who presents with signs and symptoms consistent with choledocholithiasis and acute cholecystitis. He is now postoperative day 1 from laparoscopic cholecystectomy with intraoperative cholangiogram. Procedure was completed in uncomplicated fashion and the cholangiogram showed free flow of contrast through the stent. This morning patient is comfortable and his abdominal exam is appropriate. Further, his labs are reviewed and are downtrending appropriately. Thus from a surgical standpoint patient's diet can be advanced and he can be considered for discharge to home with outpatient follow-up in another 10 to 14 days. Reece Koch MD General Surgery Endocrine Surgery Pager: [facility] [address] [place] [address], [address] [place] [address] Office: [phone] Charges/Coding Visit Charges Inpatient E&M: 09110 Subs Hosp L2
--- NOTE | 2023-11-14 07:32 | PCM.PN.HOSP ---
Reason for Visit Reason for Visit: Diagnoses Calculus of gallbladder with acute cholecystitis with obstruction (11/12/23) Subjective Subjective Patient underwent laparoscopic cholecystectomy with intraoperative cholangiogram on 11/13/2023 Objective Data Objective Data Vital Signs: Vital Signs Temp Pulse Resp BP Pulse Ox O2 Del Method O2 Flow Rate 98.4 F 69 20 H 120/77 95 Room Air 2 11/14/23 05:53 11/14/23 05:53 11/14/23 05:53 11/14/23 05:53 11/14/23 05:53 11/14/23 05:53 11/14/23 02:08 Oxygen Flow Rate (L/min) 2 Oxygen Delivery Method Room Air Weight: 94.801 kg Body Mass Index (BMI) 30.8 Intake & Output: Intake and Output for Last 24 Hours 11/12/23 11/13/23 11/14/23 23:59 23:59 23:59 Intake Total 1550 / 1550 3045.42 / 3045.42 1647.08 / 1647.08 Output Total 0 / 0 Balance 1550 / 1550 3045.42 / 3045.42 1647.08 / 1647.08 Lab / Micro Data 11/14/23 06:50 11/13/23 06:22 Labs: Laboratory Results - last 24 hr 11/12/23 11:15: Diff Path Review Reviewed Radiography Diagnostic Testing: Radiology Impression Endo Retro Cholangiopancreatogram 11/13/23 12:31 IMPRESSION: ERCP as described above. Electronically Signed: Greg Saucedo MD at 14:06 EDT , Cholangiogram 11/13/23 13:37 IMPRESSION: ERCP as described above. Electronically Signed: Greg Saucedo MD at 15:07 EDT , Physical Exam Narrative GENERAL: cooperative HEENT: Atraumatic; normocephalic EYES; Anicteric, Normal Conjunctiva NECK; supple, normal thyroid, RESPIRATORY: Diminished to auscultation CARDIOVASCULAR: Regular S1 S2, GI: soft, normoactive bowel sounds, RUQ tenderness : No Renal angle tenderness; EXTREMITIES: No edema, no clubbing, MUSCULOSKELETAL: no muscle wasting NEURO: Awake; no lateralizing signs. SKIN: No Rash PSYCH; Flat affect Assessment & Plan Assessment/Plan (1) Cholelithiasis and acute cholecystitis with obstruction: PLAN: Plan Patient is a 58-year-old gentleman presenting with right upper quadrant abdominal pain 1. Acute cholelithiasis with obstruction ? CT obtained at an outside facility demonstrated multiple gallstones with intrahepatic biliary dilatation. The films have been sent to radiology for reread. Patient admitted to regular nursing floor managed with pain meds, antinausea medication IV fluids with consultation placed to Dr. Abreu with gastroenterology ? 11/13/2023 patient scheduled to undergo ERCP and cholecystectomy ? 11/14/2023;Patient underwent laparoscopic cholecystectomy with intraoperative cholangiogram on 11/13/2023 2. Suspected acute cholecystitis ? Patient started on Zosyn consult placed to general surgery?Dr. Koch 3. Hypertension - Blood pressure controlled, home medications continued with dose adjustment as needed. 4. Suspected pneumonia involving the right lower lobe ? Patient remains on broad-spectrum antibiotic therapy 5. DVT prophylaxis ? Low risk with encouraging ambulation Time spent in the patient's overall evaluation,decision-making process, review of diagnostic data, adjustment of management, discussion with other providers, nursing nursing and ancillary staff involved in patient's care documentation, 35 Minutes Charges/Coding Visit Charges Inpatient E&M: 24859 Subs Hosp L2
[2023-11-14 07:50] LABS: Absolute Neutrophil Count 5.6 X10^3/uL (2.0-7.7); Basophil# 0.03 X10^3/uL; Basophil% 0.4 % (0-1); Eosinophils% 2.5 % (0-5); Hematocrit 37.7 % (40-54); Hemoglobin 12.7 g/dL (13.0-16.5); Lymphocyte % 13.7 % (19-41); Mean Corp Hgb Conc 33.7 g/dL (32-36); Mean Corpuscular Hgb 28.7 pg (27.0-32.0); Mean Corpuscular Volume 85.3 fL (80-94); Mean Platelet Vol. 9.7 fl (6.2-12.0); Monocyte# 1.02 X10^3/uL; Monocyte% 12.7 % (0-10); NRBC Flagged by Analyzer 0 % (0-5); Neutrophil # 5.64 X10^3/uL (2.7-7.7); Neutrophil % 70.5 % (47-70); Platelet Count 235 K/mm3 (150-450); RBC Distribution Width CV 13.9 % (11.6-14.6); RBC Distribution Width SD 43.8 fl (35.1-43.9); Red Blood Count 4.42 M/mm3 (4.6-6.2)
[2023-11-14 08:00] VITALS: BP 106/71; PULSE 66; RESP 14; TEMP 36.6; O2SAT 94
[2023-11-14 08:04] LABS: AST(SGOT) 54 U/L (15-37); Alanine Aminotransfer ALT/SGPT 154 U/L (16-61); Albumin, Serum 2.7 g/dL (3.2-5.0); Alkaline Phosphatase 146 U/L (45-117); Anion Gap 7 (5-15); BUN 8 mg/dL (7-18); Bilirubin, Direct 3.28 mg/dL (0.00-0.30); Calcium,Total 8.2 mg/dL (8.5-10.1); Chloride 105 mmol/L (98-107); EST Glomerular Filtration Rate 105 mL/min (>60); Est Glom Filt Rate - Afr Amer 127 mL/min (>60); Estimated Creatinine Clearance 115.77 ml/min; Globulin 3.5 g/dL (2.2-4.2); Glucose 141 mg/dL (74-106); Potassium 3.5 mmol/L (3.5-5.1); Protein, Total 6.2 g/dL (6.4-8.2); Sodium Level 138 mmol/L (136-145)
[2023-11-14] MEDS: Pantoprazole Sodium 40 MG Tablet PO (08:20)
[2023-11-14] MEDS: Losartan Potassium 50 MG Tablet PO (08:20)
--- NOTE | 2023-11-14 10:20 | PCM.DC.SUM ---
Providers Date of Admission: 11/12/23 Date of Discharge: 11/14/23 Consultations 11/12/23 10:38 Consult: Gastroenterology Routine Consulting Provider: Chavo Moore Reason for Consult: Cholelithiasis EMERGENT Consult: No Notified: Yes Date Notified: 11/12/23 Time Notified: 10:38 Method of Notification: ED Physician Initiated 11/12/23 11:34 Consult: General Surgery Routine Consulting Provider: Reece Koch Reason for Consult: Suspected cholecystitis EMERGENT Consult: No Notified: Yes Date Notified: 11/12/23 Time Notified: 11:34 Method of Notification: Verbal Reason For Visit: ERCP Diagnosis Discharge Diagnosis (1) Cholelithiasis and acute cholecystitis with obstruction: Status: Acute Code(s): K80.01 - Calculus of gallbladder with acute cholecystitis with obstruction Plan Patient is a 58-year-old gentleman presenting with right upper quadrant abdominal pain 1. Acute cholelithiasis with obstruction ? CT obtained at an outside facility demonstrated multiple gallstones with intrahepatic biliary dilatation. The films have been sent to radiology for reread. Patient admitted to regular nursing floor managed with pain meds, antinausea medication IV fluids with consultation placed to Dr. Abreu with gastroenterology ? 11/13/2023 patient scheduled to undergo ERCP and cholecystectomy ? 11/14/2023;Patient underwent laparoscopic cholecystectomy with intraoperative cholangiogram on 11/13/2023 2. Suspected acute cholecystitis ? Patient started on Zosyn consult placed to general surgery?Dr. Koch 3. Hypertension - Blood pressure controlled, home medications continued with dose adjustment as needed. 4. Suspected pneumonia involving the right lower lobe ? Patient remains on broad-spectrum antibiotic therapy 5. DVT prophylaxis ? Low risk with encouraging ambulation Time spent in the patient's overall evaluation,decision-making process, review of diagnostic data, adjustment of management, discussion with other providers, nursing nursing and ancillary staff involved in patient's care documentation, 35 Minutes Medications at Discharge Home Medications telmisartan 40 mg tablet (Micardis) 40 mg PO DAILY cholesterol 11/12/23 amoxicillin 875 mg-potassium clavulanate 125 mg tablet 1 tab PO BID #14 tabs 11/14/23 oxycodone 5 mg tablet 5 mg PO Q4H PRN PRN Pain Score 4-10 5 days #14 tabs 11/14/23 pantoprazole 40 mg tablet,delayed release 40 mg PO DAILY #30 tabs 11/14/23 Physical Exam Narrative GENERAL: cooperative HEENT: Atraumatic; normocephalic EYES; Anicteric, Normal Conjunctiva NECK; supple, normal thyroid, RESPIRATORY: Diminished to auscultation CARDIOVASCULAR: Regular S1 S2, GI: soft, normoactive bowel sounds, RUQ tenderness : No Renal angle tenderness; EXTREMITIES: No edema, no clubbing, MUSCULOSKELETAL: no muscle wasting NEURO: Awake; no lateralizing signs. SKIN: No Rash PSYCH; Flat affect Weight / BMI Weight Weight: 94.801 kg Body Mass Index (BMI) 30.8 ABG / Lab / Microbiology Data 11/14/23 06:50 11/14/23 06:50 Laboratory: Laboratory Results - last 24 hr 11/14/23 06:50: WBC 8.0, RBC 4.42 L, Hgb 12.7 L, Hct 37.7 L, MCV 85.3, MCH 28.7, MCHC 33.7, RDW Std Deviation 43.8, RDW Coeff of Abdiaziz 13.9, Plt Count 235, MPV 9.7, Immature Gran % (Auto) 0.200, Neut % (Auto) 70.5 H, Lymph % (Auto) 13.7 L, [place] % (Auto) 12.7 H, Eos % (Auto) 2.5, Baso % (Auto) 0.4, Absolute Neuts (auto) 5.6, Absolute Lymphs (auto) 1.10, Nucleated RBC % 0, Sodium 138, Potassium 3.5, Chloride 105, Carbon Dioxide 26.0, Anion Gap 7, BUN 8, Creatinine 0.80, Estim Creat Clear Calc 115.77, Est GFR (MDRD) Af Amer 127, Est GFR (MDRD) Non-Af 105, BUN/Creatinine Ratio 10.0, Glucose 141 H, Calcium 8.2 L, Total Bilirubin 4.30 H, Direct Bilirubin 3.28 H, AST 54 H, ALT 154 H, Alkaline Phosphatase 146 H, Total Protein 6.2 L, Albumin 2.7 L, Globulin 3.5 Radiography Diagnostic Testing: Radiology Impression Endo Retro Cholangiopancreatogram 11/13/23 12:31 IMPRESSION: ERCP as described above. Electronically Signed: Greg Saucedo MD at 14:06 EDT , Cholangiogram 11/13/23 13:37 IMPRESSION: ERCP as described above. Electronically Signed: Greg Saucedo MD at 15:07 EDT , D/C Instructions Discharge Diet: No restrictions Discharge Activity: Return to Normal Activity Call your doctor if you observe: Fever of 101 or Higher, Shortness of breath, Fainting spells and Chest pain Meaningful Use Info Meaningful Use Meaningful Use Diagnoses (Choose all that apply): None applicable Ischemic Stroke Statin Dosing Therapy Reference: STATIN DOSE THERAPY REFERENCE: * Patients > 75 years receive moderate or high dose statin therapy. * Patients 75 years or YOUNGER should receive HIGH intensity statin dose unless contraindicated. You will be required to document reason for non-treatment if statin daily dose does not meet guidelines. HIGH DOSE STATIN THERAPY DAILY Atorvastatin > than or = to 40 mg Rosuvastatin > than or = to 20 mg Amlodipine + Atorvastatin > than or = to 2.5/40 mg Ezetimibe + Simvastatin 10/80 mg Simvastatin 80mg Discharge Plan Admission Admit Date/Time: 11/12/23 10:33 Attending Provider: Archie Eng Consulting Providers: Reece Koch Discharge Orders/Prescriptions Prescriptions: New oxycodone 5 mg Tablet 5 mg PO Q4H PRN PRN (Reason: Pain Score 4-10) 5 Days Qty: 14 0RF pantoprazole 40 mg Tablet,Delayed Release (Dr/Ec) 40 mg PO DAILY Qty: 30 0RF amoxicillin-pot clavulanate 875-125 mg tablet 1 tab PO BID Qty: 14 0RF Continued telmisartan [Micardis] 40 mg tablet 40 mg PO DAILY Referrals / Follow Up: Reece Koch MD [Med Staff - Active Staff] - Within 2 Weeks Disposition Disposition (needs filled in before D/C Order can be placed): Home, Self Care Charges/Coding Visit Charges Inpatient E&M: 69318 Disch Hosp >30min
--- NOTE | 2023-11-14 11:20 | CASEMGMT ---
RN?CM?FOOD ANALYST?CM?to room to meet with patient for initial transition planning/care coordination?assessment.?RN?CM?introduced self and role at [facility].? Pt voices understanding and consents to?assessment?at this time.? Pt sitting up inc chair in room in no distress at this time.? GF, Leydi, @ bedside and pt agreeable to her being present during assessment. Pt is A/O at this time and answers all questions appropriately.?? Care providers, pharmacy, and demographics verified/updated at this time. PCP: Dr Manzanares Specialists: none Preferred Pharmacy: [facility] Retail @ [place] Insurance: Medical [place] Prescription Benefit:?Pt not sure Living Will/HPOA:?Pt does not currently have LW/HCPOA and declines info at this time.? Pt made aware that he can contact as an out-pt and make appt in the future if he decides he would like to talk with someone about this or would like to utilize [facility] social work for advanced directive completion. LNOK: 10 siblings. No children and parents are . Living Arrangements: Lives alone in 2-story home. Independent w/ADL's and IADL's. Transportation:?Pt uses bicycle to most places or hires drivers. DME: ? Denies using any DME HHC/SNF: No hx of either. No needs identified. Pt wishes to return home and states has no concerns with going home. PLAN:??Home Choco GAINESN?RN?CM
--- NOTE | 2023-11-14 12:14 | PHA.DC.MC.R ---
Pharmacy [facility] has performed discharge medication reconciliation and counseling for this patient. 1. AMOXICILLIN/CLAVULANATE 875MG PO BID X 7 DAYS 2. OXYCODONE 5MG PO Q4H PRN PAIN 3. PANTOPRAZOLE 40MG PO DAILY The patient's discharge medication list was reviewed for discrepancies and discrepancies were resolved. The patient was counseled on the following discharge medications and changes in medications for homegoing were reviewed. The Reason for Use, instructions for use, and potential side effects were reviewed for all new medications. The patient's questions regarding all of their medications were answered. The patient was able to verbally demonstrate an understanding of their discharge medications. Medications at Discharge Home Medications telmisartan 40 mg tablet (Micardis) 40 mg PO DAILY cholesterol 11/12/23 amoxicillin 875 mg-potassium clavulanate 125 mg tablet 1 tab PO BID #14 tabs 11/14/23 oxycodone 5 mg tablet 5 mg PO Q4H PRN PRN Pain Score 4-10 5 days #14 tabs 11/14/23 pantoprazole 40 mg tablet,delayed release 40 mg PO DAILY #30 tabs 11/14/23
== END 2023-11-14 14:41 | disposition home or self-care (01) | DRG 417 ==
PROVIDERS: Internal Medicine Gastroenterology; Surgery; Admitting Provider Internal Medicine; PCP Family Medicine; Visit Provider Internal Medicine
PROC: 0FC98ZZ Extirpation of Matter from Common Bile Duct, Via Natural or Artificial Opening Endoscopic (ICD-10-PCS; CPT 43260; principal; 2023-11-13 11:10)
PROC: 0FT44ZZ Resection of Gallbladder, Percutaneous Endoscopic Approach (ICD-10-PCS; CPT 47610; principal; 2023-11-13 11:10)
DX: K80.67 Calculus of gallbladder and bile duct with acute and chronic cholecystitis with obstruction (principal); J18.9 Pneumonia, unspecified organism; I10 Essential (primary) hypertension; Z79.899 Other long term (current) drug therapy; Z87.891 Personal history of nicotine dependence
CPT/HCPCS: 36415; 71045; 74300; 74330; 76000; 80048; 80076; 83605; 83735; 84100; 85025; 87040; 88304; 93005; 94668; J7120; A4216; J2405

== ENCOUNTER → 2023-11-27 | Outpatient (CLI) | payer OTHER, SELFPAY ==
[2023-11-27 11:07] LABS: AST(SGOT) 23 U/L (15-37); Alanine Aminotransfer ALT/SGPT 56 U/L (16-61); Albumin, Serum 3.9 g/dL (3.2-5.0); Alkaline Phosphatase 137 U/L (45-117); Anion Gap 4 (5-15); BUN 12 mg/dL (7-18); BUN/Creat Ratio 13.8 RATIO (10-20); Calcium,Total 9.6 mg/dL (8.5-10.1); Chloride 106 mmol/L (98-107); Creatinine, Serum 0.87 mg/dL (0.70-1.30); EST Glomerular Filtration Rate 96 mL/min (>60); Est Glom Filt Rate - Afr Amer 116 mL/min (>60); Glucose 104 mg/dL (74-106); Potassium 3.9 mmol/L (3.5-5.1); Protein, Total 7.9 g/dL (6.4-8.2); Sodium Level 140 mmol/L (136-145)
== END | disposition home or self-care (01) ==
LOC: PAVLAB 10:38
PROVIDERS: PCP Family Medicine; Referring Provider Physician Assistant; Visit Provider Physician Assistant
DX: Z90.49 Acquired absence of other specified parts of digestive tract (principal)
CPT/HCPCS: 36415; 80053

== ENCOUNTER 2024-02-02 09:53 | Day surgery (SDC) | payer OTHER, SELFPAY ==
[2024-02-02] VITALS (7 sets, daily range): BP systolic 100–121; BP diastolic 70–76; PULSE 52–81; RESP 16–18; TEMP 36–36.8; O2SAT 95–97; BMI 30.7
--- NOTE | 2024-02-02 10:03 | EKG12_ITS ---
Test Reason : pre op Blood Pressure : / mmHG Vent. Rate : 053 BPM Atrial Rate : 053 BPM P-R Int : 192 ms QRS Dur : 084 ms QT Int : 432 ms P-R-T Axes : 034 043 030 degrees QTc Int : 405 ms Sinus bradycardia Otherwise normal ECG When compared with ECG of 12-NOV-2023 13:36, Vent. rate has decreased BY 49 BPM Confirmed by Reece Patiño ([id number]), purchase request editor KENDALL MARCIAL ([id number]) on 02/05/2024 2:27:31 PM Referred By: Prince Manzanares Confirmed By:Reece Patiño
--- NOTE | 2024-02-02 10:15 | RAD_ITS ---
ERCP INDICATION: Abdominal pain. Fluoroscopy time: 0:27 Images obtained: 8 TECHNIQUE: 0:27 minutes of fluoroscopy of the abdomen was utilized during an ERCP and 8 images submitted for interpretation. Next FINDINGS: The first image demonstrates presence of a biliary stent which appears to been removed. Examination, bile duct demonstrates some mild narrowing of the distal common bile duct possibly consistent with a stricture. RAD/ERCP Biliary/Pancreas IMPRESSION: Suspect mild stricture of the distal common bile duct. Electronically Signed: Alfredo Borrego MD at 10:19 EDT ,
--- NOTE | 2024-02-02 10:27 | HP.PCM_ITS ---
HPI - General General Date of Admission: 03/03/24 Date of Service: 02/02/24 Chief Complaint: Choledocholithiasis status post ERCP with stent placement and now here for stent removal HPI Ramana WEST, is a 58 y/o M who presents s/p laparoscopic cholecystectomy with intraoperative cholangiography on 11/13/[address] Koch and ERCP with stent placement at the same setting. Patient tolerated the procedure well. Patient denies any nausea, vomiting, fever since the procedure. He notes bowel habits have returned to normal. He denies concerns with urination. He notes his appetite has returned to normal. He comes in today for stent removal versus replacement. [facility] Medical History (Updated 01/27/24 @ 11:58 by Marce Junior) Wears glasses Wears partial dentures Broken leg Cancer Former smoker Hypertension Home Medications ?Medication ?Instructions ?Recorded ?Last Taken ?Type telmisartan 40 mg tablet (Micardis) 40 mg PO DAILY BLOOD PRESSURE 11/12/23 02/02/24 07:00 History Allergy/AdvReac Type Severity Reaction Status Date / Time No Known Allergies Allergy Verified 02/02/24 10:18 Surgical History (Updated 01/27/24 @ 11:58 by Marce Junior) Status post cholecystectomy Social History Smoking Status: Former smoker
--- NOTE | 2024-02-02 10:29 | PRE.ANES_ITS ---
ASA Classification* ASA Classification ASA Classification: 2 Assessment & Plan Anesthesia* Anesthesia Assessment Anesthesia Assessment: Discussed sedation and/or anesthesia options, risks, benefits, and alternatives with patient/parents/legal guardian/POA. Questions invited. The patient/parents/legal guardian/POA seems to understand and agrees to proceed with anesthesia plan. Reviewed the physical assessment, medical history, allergy history and patient home medications list prior to surgery/procedure/anesthetic and documented any changes. Performed airway and anesthesia risk assessments. Anesthesia Type Anesthesia Type: General Anesthesia Focused Assessment* Airway Assessment Mouth opens: >3 cm Mallampati Score: II Focused Labs Anesthesia Preop lab: CBC WBC 8.0 K/mm3 (4.4-11.0) 11/14/23 06:50 RBC 4.42 M/mm3 (4.6-6.2) L 11/14/23 06:50 Hgb 12.7 g/dL (13.0-16.5) L 11/14/23 06:50 Hct 37.7 % (40-54) L 11/14/23 06:50 Plt Count 235 K/mm3 (150-450) 11/14/23 06:50 CHEMISTRY Potassium 3.9 mmol/L (3.5-5.1) 11/27/23 10:44 Sodium 140 mmol/L (136-145) 11/27/23 10:44 Magnesium 2.0 mg/dL (1.6-2.6) 11/13/23 06:22 Phosphorus 1.7 mg/dL (2.5-4.9) L 11/13/23 06:22 BUN 12 mg/dL (7-18) 11/27/23 10:44 Creatinine 0.87 mg/dL (0.70-1.30) 11/27/23 10:44 Glucose 104 mg/dL (74-106) 11/27/23 10:44 COAG Pre-Assessment Diagnosis/Proposed Procedure Planned Operative Procedure(s): ERCP WITH STENT REMOVAL Anesthesia History 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 When Was Last Pacemaker Check QUESTION #4 FULL TEXT: You/Your Family Experience fever (hyperthermia) with Anesthesia Last Oral Intake Last Oral intake: Last Oral Intake NPO since Meds taken in AM with sips of water? Meds patient instructed to take am of surgery PONV PONV - operations and maintenance supervisor: PONV - operations and maintenance supervisor Female No 01/27/24 11:58 HX of Motion Sickness No 01/27/24 11:58 HX of N/V After Surgery No 01/27/24 11:58 Non-Smoker Yes 01/27/24 11:58 Duration of Surgery greater Yes 01/27/24 11:58 than 60 minutes Number of Risk Factors 2 01/27/24 11:58 PONV Score Moderate Risk 01/27/24 11:58 Height & Weight Height & Weight: Anesthesia: Height & Weight Height 5 ft 9 in 11/13/23 07:59 Respiratory Assessment Respiratory Assessment - operations and maintenance supervisor: Respiratory Tract Infection Hx - operations and maintenance supervisor Hx Respiratory Tract Infection No 01/27/24 11:58 STOP Sleep Apnea STOP Sleep Apnea - operations and maintenance supervisor: STOP Sleep Apnea - operations and maintenance supervisor Hx Hypertension Yes 01/27/24 11:58 Hx Sleep Apnea No 01/27/24 11:58 CPAP BIPAP Do you snore loudly (louder Yes 01/27/24 11:58 than talking or can be heard Do you often feel tired/ No 01/27/24 11:58 fatigued/ sleepy during daytime? Has anyone observed you stop No 01/27/24 11:58 breathing during sleep? STOP Results Positive 01/27/24 11:58 QUESTION #5 FULL TEXT : Do you snore loudly (louder than talking or can be heard through closed doors)? 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 Specify any problems Hx of Preganancy in last 3 N/A 01/27/24 11:58 Months Nurse Filling Out Transfusion TANJA 01/27/24 11:58 & Questions: Date: 01/27/24 01/27/24 11:58 Time: 12:01 01/27/24 11:58 Patient unable to answer at this time (ie. confused, unrespo /Reproduction History /Reproductive History - operations and maintenance supervisor: /Reproductive Hx- operations and maintenance supervisor Hx Now No 01/27/24 11:58 Gestational Age (in weeks): EDC: Hx Hx Para Hx Section SAB No 01/27/24 11:58 Active Medications Active Medications: Current Medications Generic Name Dose Route Start Last Admin Trade Name Freq PRN Reason Stop Dose Admin Lactated Ringer's 1,000 mls @ 15 mls/hr 02/02/24 10:15 IV .Q48H EYAD PFSH Medical History (Updated 01/27/24 @ 11:58 by Marce Junior) Wears glasses Wears partial dentures Broken leg Cancer Former smoker Hypertension Home Medications ?Medication ?Instructions ?Recorded ?Last Taken ?Type telmisartan 40 mg tablet (Micardis) 40 mg PO DAILY BLOOD PRESSURE 11/12/23 02/02/24 07:00 History Allergy/AdvReac Type Severity Reaction Status Date / Time No Known Allergies Allergy Verified 02/02/24 10:18 Surgical History (Updated 01/27/24 @ 11:58 by Marce Junior) Status post cholecystectomy Social History Smoking Status: Former smoker Review of Systems (Anesthesia) ROS Narrative System reviewed and no additional complaints, except as documented.
[2024-02-02] MEDS: Lactated Ringers 1,000 ML 15 ML IV (10:32)
--- NOTE | 2024-02-02 12:26 | PCM.POST.ANE ---
Anesthesia: Postop Eval I Current Vital Signs Temperature: 97.2 F Pulse Rate: 74 Blood Pressure: 114/76 Respiratory Rate: 18 Pulse Ox: 95 Assessment Airway patent: Yes Spontaneous unlabored respirations: Yes nausea: No Vomiting: No Anesthesia Complication: No Fluid Hydration Crystalloid volume administer (ml): 800 Total IV fluid infused: 800 Progress Note Anesthesia document: Postop Eval 1 completed: Yes
--- NOTE | 2024-02-02 12:30 | OP.ERCP_ITS ---
Patient Name: Shakeel Tony Procedure Date: 02/02/2024 11:43 AM Date of : 1965 Age: 58 Procedure: ERCP Indications: Biliary stent removal Providers: Slade Abreu DO Referring MD: Prince Manzanares Medicines: Monitored Anesthesia Care Patient Profile: This is a 58 year old male. Refer to note in patient chart for documentation of history and physical. Patient has symptoms. He is status post laparoscopic cholecystectomy within the past three months. Complications: No immediate complications. Procedure: Pre-Anesthesia Assessment: - Prior to the procedure, a History and Physical was performed, and patient medications and allergies were reviewed. The patient is competent. The risks and benefits of the procedure and the sedation options and risks were discussed with the patient. All questions were answered and informed consent was obtained. Patient identification and proposed procedure were verified by the physician in the pre-procedure area. Mental Status Examination: alert and oriented. Airway Examination: normal oropharyngeal airway and neck mobility. Respiratory Examination: clear to auscultation. CV Examination: normal. Prophylactic Antibiotics: The patient does not require prophylactic antibiotics. Prior Anticoagulants: The patient has taken no anticoagulant or antiplatelet agents. ASA Grade Assessment: II - A patient with mild systemic disease. After reviewing the risks and benefits, the patient was deemed in satisfactory condition to undergo the procedure. The anesthesia plan was to use monitored anesthesia care (MAC). Immediately prior to administration of medications, the patient was re-assessed for adequacy to receive sedatives. The heart rate, respiratory rate, oxygen saturations, blood pressure, adequacy of pulmonary ventilation, and response to care were monitored throughout the procedure. The physical status of the patient was re-assessed after the procedure. After obtaining informed consent, the scope was passed under direct vision. Throughout the procedure, the patient's blood pressure, pulse, and oxygen saturations were monitored continuously. The Duodenoscope was introduced through the mouth, and advanced to the duodenum and used to inject contrast into the bile duct. The ERCP was accomplished without difficulty. The patient tolerated the procedure well. Scope In: 12:07:11 PM Scope Out: 12:15:18 PM Total Procedure Duration Time 0 hours 8 minutes 7 seconds Findings: The repair technician film was normal. The esophagus was successfully intubated under direct vision. The scope was advanced to a normal major papilla in the descending duodenum without detailed examination of the pharynx, larynx and associated structures, and upper GI tract. The upper GI tract was grossly normal. The bile duct was deeply cannulated with the short-nosed traction sphincterotome. Contrast was injected. I personally interpreted the bile duct images. There was brisk flow of contrast through the ducts. Image quality was adequate. Contrast extended to the entire biliary tree. The lower third of the main bile duct contained a single localized stenosis 4 mm in length. The main bile duct was diffusely dilated, acquired. The largest diameter was 10 mm. A cholecystectomy had been performed. A straight Roadrunner wire was passed into the biliary tree. A 5 mm biliary sphincterotomy was made with a traction (standard) sphincterotome using ERBE electrocautery. There was no post-sphincterotomy bleeding. The biliary tree was swept with a 12 mm balloon starting at the bifurcation. Sludge was swept from the duct. All stones were removed. One stent was removed from the biliary tree using a snare. The stent was found to be partially occluded via the water column test. Dilation of the left main hepatic duct with 9 Fr catheter dilator was successful. Impression: - A single localized biliary stricture was found in the lower third of the main bile duct. The stricture was benign appearing. - The entire main bile duct was dilated, acquired. - The patient has had a cholecystectomy. - Choledocholithiasis was found. Complete removal was accomplished by biliary sphincterotomy and balloon extraction. - A biliary sphincterotomy was performed. - The biliary tree was swept. - One stent was removed from the biliary tree. - The left main hepatic duct was successfully dilated. Procedure Code(s): --- Professional --- 49035, Endoscopic retrograde cholangiopancreatography (ERCP); with removal of foreign body(s) or stent(s) from biliary/pancreatic duct(s) 32058, Endoscopic retrograde cholangiopancreatography (ERCP); with removal of calculi/debris from biliary/pancreatic duct(s) 87464, Endoscopic retrograde cholangiopancreatography (ERCP); with sphincterotomy/papillotomy 34614, 26, Endoscopic catheterization of the biliary ductal system, radiological supervision and interpretation 00930, Unlisted procedure, biliary tract CPT copyright 2021 [employer]. All rights reserved. The codes documented in this report are preliminary and upon blower mechanic review may be revised to meet current compliance requirements. Slade Abreu DO 02/02/2024 12:30:47 PM This report has been signed electronically. Number of Addenda: 0 Note Initiated On: 02/02/2024 11:43 AM
--- NOTE | 2024-02-02 12:31 | OP.CCLET_ITS ---
02/02/2024 Prince Manzanares Re : ERCP procedure for Shakeel Tony Dear [place] This procedure was performed on Friday, February 02, 2024. My impressions and recommendations are as follows: Impressions : - A single localized biliary stricture was found in the lower third of the main bile duct. The stricture was benign appearing. - The entire main bile duct was dilated, acquired. - The patient has had a cholecystectomy. - Choledocholithiasis was found. Complete removal was accomplished by biliary sphincterotomy and balloon extraction. - A biliary sphincterotomy was performed. - The biliary tree was swept. - One stent was removed from the biliary tree. - The left main hepatic duct was successfully dilated. Recommendations : My findings are described in the full procedure note, which is enclosed. If I can be of further assistance, please feel free to contact me at . Sincerely, Slade Abreu, 02/02/2024 12:30:47 PM This report has been signed electronically.
--- NOTE | 2024-02-02 12:45 | POSTOPAN2_ITS ---
Anesthesia Postop Eval I Sum Postop Eval Completion status Anesthesia document: Postop Eval 1 completed: Yes Anesthesia Postop Eval I Summary Anesthesia Postop Eval I Summary: Anesthesia Postop Eval I: Assessment Summary Airway patent Yes 02/02/24 12:26 LITHOPLATE [email or web address] Spontaneous unlabored Yes 02/02/24 12:26 LITHOPLATE MAKER.CSIR respirations Mental status nausea No 02/02/24 12:26 LITHOPLATE MAKER.CSIR Vomiting No 02/02/24 12:26 LITHOPLATE MAKER.CSIR Anesthesia Postop Eval I: Fluid Summary Crystalloid volume administer 800 02/02/24 12:26 LITHOPLATE MAKER.CSIR (ml) Colloids volume administered ( ml) Blood Product volume administered (ml) Total IV fluid infused 800 02/02/24 12:26 LITHOPLATE MAKER.CSIR Anesthesia Postop Eval I: Summary Notes Anesthesia Complication No 02/02/24 12:26 LITHOPLATE MAKER.CSIR Anesthesia Complication Comment: Post-operative progress note Anesthesia: Postop Eval II Evaluation Mental status: Awake and Calm Pain Level: 0 nausea: No Vomiting: No Complications Anesthesia Complication: No
--- NOTE | 2024-02-02 12:45 | PCM.POSTANE2 ---
Anesthesia Postop Eval I Sum Postop Eval Completion status Anesthesia document: Postop Eval 1 completed: Yes Anesthesia Postop Eval I Summary Anesthesia Postop Eval I Summary: Anesthesia Postop Eval I: Assessment Summary Airway patent Yes 02/02/24 12:26 GRAVITY [email or web address] Spontaneous unlabored Yes 02/02/24 12:26 GRAVITY PROSPECTOR.CSIR respirations Mental status nausea No 02/02/24 12:26 GRAVITY PROSPECTOR.CSIR Vomiting No 02/02/24 12:26 GRAVITY PROSPECTOR.CSIR Anesthesia Postop Eval I: Fluid Summary Crystalloid volume administer 800 02/02/24 12:26 GRAVITY PROSPECTOR.CSIR (ml) Colloids volume administered ( ml) Blood Product volume administered (ml) Total IV fluid infused 800 02/02/24 12:26 GRAVITY PROSPECTOR.CSIR Anesthesia Postop Eval I: Summary Notes Anesthesia Complication No 02/02/24 12:26 GRAVITY PROSPECTOR.CSIR Anesthesia Complication Comment: Post-operative progress note Anesthesia: Postop Eval II Evaluation Mental status: Awake and Calm Pain Level: 0 nausea: No Vomiting: No Complications Anesthesia Complication: No
== END 2024-02-02 13:23 | disposition home or self-care (01) ==
LOC: EN 09:54 → AC 09:56
PROVIDERS: PCP Family Medicine; Referring Provider Family Medicine; Visit Provider Internal Medicine Gastroenterology
PROC: (CPT 43260; principal; 2024-02-02 10:55)
DX: K80.51 Calculus of bile duct without cholangitis or cholecystitis with obstruction (principal); I10 Essential (primary) hypertension; Z90.49 Acquired absence of other specified parts of digestive tract; Z79.899 Other long term (current) drug therapy; Z87.891 Personal history of nicotine dependence
CPT/HCPCS: 43275; 43262; 43264; 74330; 76000; 93005; J7120; J2405